=== PATIENT | female | born 1975 | race Caucasian/White ===

== ENCOUNTER 2023-05-08 08:16 | Day surgery (SDC) | payer OTHER ==
[~2023-05-08] VITALS: Ht 157.5 cm; Wt 81.6 kg
[2023-05-08] MEDS ORDERED: MIDAZOLAM 2 MG/2 ML VIAL ONE (09:02)
[2023-05-08] MEDS ORDERED: diphenhydrAMINE 50 MG/ML VIAL ONE (09:02)
[2023-05-08] MEDS ORDERED: LIDOCAINE 2% 100 MG/5 ML UJET TP ONE (09:03)
[2023-05-08] MEDS ORDERED: fentaNYL citrate 0.05 MG/ML VIAL ONE (09:03)
[2023-05-08] MEDS ORDERED: MIDAZOLAM 2 MG/2 ML VIAL IVP ONE (10:05)
[2023-05-08] MEDS ORDERED: fentaNYL citrate 0.05 MG/ML VIAL IVP ONE (10:05)
== END 2023-05-08 10:47 | disposition home or self-care (01) ==
LOC: MDS 08:16 → MMU 08:20 → MDS 10:47
PROVIDERS: ATTEND Internal Medicine Gastroenterology
DX: Z12.11 Encounter for screening for malignant neoplasm of colon (principal)
CPT/HCPCS: 45378; J1200; J2250; J3010